=== PATIENT | female | born 1950 | race Caucasian/White ===

== ENCOUNTER 2020-05-06 12:06 | Emergency (ER) | payer OTHER, MEDICAID ==
[~2020-05-06 12:06] MED LIST: ADVAIR 250/501 EA INH; ASPIRIN81 M1 PO; CIPROFLOXACIN500 MG PO; EPI-PEN1 MG/ML MR; FLAGYL500 MG PO; MYSOLINE50 M1 PO; Motrin,Rufen800 MG PO; NORCO 325 MG-101 TAB PO; PROAIR HFA0.09 MG/AC INH; RESTORIL30 MG PO; TUDORZA INH; TUDORZA PRESS400 MCG IH; ULTRAM50 MG PO; VIIBRYD40 PO; ZYBAN150 MG PO
[2020-05-06 12:44] LABS: BASO % 0.5 % (0.0-1.0); EOS # 0.2 10*3/uL (0.0-0.4); EOS % 2.1 % (1.0-4.0); HEMATOCRIT 44.3 % (37.0-47.0); LYMPH # 2.4 10*3/uL (1.3-4.4); LYMPH % 29.5 % (27.0-41.0); MEAN CELL VOLUME 93.9 fl (81.0-99.0); MEAN CORPUSCULAR HGB 27.8 pg (27.0-31.0); MEAN CORPUSCULAR HGB CONC 29.6 g/dl (33.0-37.0); MEAN PLATELET VOLUME 9.3 fl (9.6-12.3); MONO # 0.6 10*3/uL (0.1-1.0); NEUT # 4.8 10*3/uL (2.3-7.9); NEUT % 59.5 % (47.0-73.0); PLATELET COUNT AUTOMATED 319 10*3/uL (130-400); RED BLOOD COUNT 4.72 10*6/uL (4.10-5.10); RED CELL DISTRI WIDTH 12.1 % (0-14.5)
[2020-05-06 12:57] LABS: BUN 14 mg/dl (7-24); CHLORIDE 107 mmol/L (98-107); CREATININE 0.55 mg/dL (0.55-1.02); POTASSIUM 4.2 mmol/L (3.5-5.1); SODIUM 141 mmol/L (136-145)
[2020-05-06 13:27] LABS: ACT PARTIAL THROMBO TIME 24.6 SECONDS (20.0-32.1); INTERNATIONAL NORM RATIO 0.9 (2.0-3.5)
== END 2020-05-06 13:37 | disposition home or self-care (01) ==
LOC: ED 12:06
PROVIDERS: Emergency Medicine
DX: R04.0 Epistaxis (principal); J44.9 Chronic obstructive pulmonary disease, unspecified; R25.1 Tremor, unspecified; Z88.8 Allergy status to other drugs, medicaments and biological substances; Z91.030 Bee allergy status; Z88.2 Allergy status to sulfonamides; Z91.011 Allergy to milk products; Z79.899 Other long term (current) drug therapy; Z79.82 Long term (current) use of aspirin; Z90.711 Acquired absence of uterus with remaining cervical stump

== ENCOUNTER 2024-10-11 22:19 | Emergency (ER) | payer OTHER, MEDICAID ==
[~2024-10-11] VITALS: Ht 152.4 cm; Wt 68.5 kg
[2024-10-11] MEDS ORDERED: TRIHEXYPHENIDYL2 M3 PO (22:23)
[2024-10-11] MEDS ORDERED: ALENDRONATE SOD70 M1 PO (22:24)
[2024-10-11] MEDS ORDERED: LIPITOR40 MG PO (22:25)
[2024-10-11] MEDS ORDERED: DONEPEZIL HYDRO10 MG PO (22:25)
[2024-10-11] MEDS ORDERED: TOPAMAX100 M1 PO (22:25)
[2024-10-11] MEDS ORDERED: AMITRIPTYLINE100 M1 PO (22:25)
[2024-10-11] MEDS ORDERED: SPIRIVA -- 3018 MCG INH (22:26)
[2024-10-11] MEDS ORDERED: Acetaminophen/Hydrocodone 5 MG/325 MG TABLET PO ONE (23:45)
[2024-10-11] MEDS ORDERED: Ondansetron Hydrochloride 4 MG TAB SL ONE (23:45)
== END 2024-10-12 01:53 | disposition home or self-care (01) ==
LOC: ED 22:19
DX: M25.531 Pain in right wrist (principal); R22.31 Localized swelling, mass and lump, right upper limb; J44.9 Chronic obstructive pulmonary disease, unspecified; Z91.030 Bee allergy status; Z91.011 Allergy to milk products; Z88.2 Allergy status to sulfonamides; Z88.8 Allergy status to other drugs, medicaments and biological substances; Z90.710 Acquired absence of both cervix and uterus; W01.0XXA Fall on same level from slipping, tripping and stumbling without subsequent striking against object, initial encounter; Y93.89 Activity, other specified; Y92.89 Other specified places as the place of occurrence of the external cause; Y99.8 Other external cause status